=== PATIENT | male | born 1995 ===

== ENCOUNTER → 2024-11-27 | Day surgery (SDC) | payer OTHER, SELFPAY ==
--- NOTE | 2024-11-26 11:36 | ESHP_ITS ---
RE: WAYNE FRAZIER : 1995 DATE OF ADMISSION: 11/26/2024 HISTORY OF PRESENT ILLNESS: This patient is from [facility]. He was referred to me and I saw the patient. The patient is a developmentally disabled 29-year-old gentleman. He had a phimosis and had surgery done in 2023, which [place] Now, he is complaining of his urine stream is small and is going upwards and he has trouble voiding. Again, the patient is from [facility]. He has developmental disability and he has this history. PHYSICAL EXAMINATION: HEENT: Normal. NECK: Supple. LUNGS: Clear. CARDIOVASCULAR: Heart sounds are normal. ABDOMEN: Soft without any organomegaly. No guarding. No rigidity. EXTREMITIES: Normal. GENITOURINARY: Phallus is normal except his coronal sulcus is not very well seen. There are several adhesions from the glans penis to the foreskin at the coronal sulcus. The patient has a small external urethral meatus. PLAN: Meatotomy because of his poor stream and the stream diverting upwards and do a cystourethroscopy. Planned procedure, risks and complications have been discussed with the patient. The patient has understood them and agreed to proceed. Thank you very much for your kind referral. DT: 10:40:18 TT: 11:36:00 Ref: [id number] - TID: [id number]
[2024-11-26 13:49] VITALS: BMI 15.2
--- NOTE | 2024-11-26 14:02 | SUR.PREOP ---
Jelly nurse from [facility] was given instructions to keep pt NPO after MN, pt to come in at 0630 tomorrow.
== END | disposition home or self-care (01) ==
PROVIDERS: Referring Provider Surgery; Visit Provider Surgery
DX: N35.811 Other urethral stricture, male, meatal (principal); Z53.8 Procedure and treatment not carried out for other reasons
CPT/HCPCS: J2250; J2704; J3010; J3490; J0665